=== PATIENT | female | born 1965 | race Caucasian/White ===

== ENCOUNTER 2020-07-24 20:56 | Emergency (ER) | payer OTHER, SELFPAY | END 2020-07-24 22:40 | LOC: ERS 20:56 | DX: S23.3XXA Sprain of ligaments of thoracic spine, initial encounter (principal); S40.022A Contusion of left upper arm, initial encounter; V49.40XA Driver injured in collision with unspecified motor vehicles in traffic accident, initial encounter | CPT/HCPCS: 72040; 72072 ==